=== PATIENT | male | born 1995 ===

== ENCOUNTER 2017-04-02 13:56 | Emergency (ER) | payer OTHER ==
[2017-04-02 14:22] VITALS: BP 120/51; PULSE 70; RESP 16; TEMP 98.1; O2SAT 100
[2017-04-02] MEDS ORDERED: Sodium Chloride 0.9% 1,000 ML IV STA (15:14)
--- NOTE | 2017-04-02 15:18 | ED PDOC ---
HPI: Abdomen Chief Complaint (Provider): Vomiting/Diarrhea History Per: Patient History/Exam Limitations: no limitations Onset/Duration Of Symptoms: Days Outside of [place] travel?: No Current Symptoms Are (Timing): Intermittent Episodes Associated Symptoms: Nausea, Vomiting, Diarrhea, Loss Of Appetite. denies: Fever, Chills, Back Pain, Chest Pain, Urinary Symptoms Exacerbating Factors: Food Alleviating Factors: None Last Bowel Movement: Today Additional History Per: Patient <Ja Carlton - Last Filed: 04/02/17 18:33> <Nathalia Dotson - Last Filed: 04/03/17 14:17> Time Seen by Provider: 04/02/17 14:38 Chief Complaint (Nursing): Abdominal Pain Additional Complaint(s): This is 22 y/o Male with no PMH or PSH comes to the ED complaining of 2 days history of NBNB vomiting and 1 episode of NB diarrhea. Patient admits vomiting last 2 days 2 episodes/day, denies any vomiting today but reports 1 watery diarrhea this morning. Patient also admits anorexia for 2 days. Food makes his symptoms worse, reports associated nausea and dizziness. Denies any fever, weakness, chest pain, SOB, admits stomach pain when tries to cough or vomit. Denies any unusual food intake, travel or having anyone home with same symptoms. (Ja Carlton) Supervising Attending Note <Ja Carlton - Last Filed: 04/02/17 18:33> - Supervising Attending Note The Documented history was done by the: Physician Education Trainer, Attending Physician The documented physical exam was done by the: Physician Education Trainer, Attending Physician - Attestation: I have personally seen and examined this patient.: Yes I have fully participated in the care of the patient.: Yes I have reviewed all pertinent clinical information: Yes <Nathalia Dotson - Last Filed: 04/03/17 14:17> - Notes: Notes:: Vomiting with improvement after IVF, benign abdomen. (Nathalia Dotson) Past Medical History Reviewed: Vital Signs - Medical History Other PMH: None - Surgical History Other surgeries: None - Family History Family History: States: Unknown Family Hx - Social History Current smoker - smoking cessation education provided: Yes Alcohol: Social Drugs: Denies - Immunization History Hx Tetanus Toxoid Vaccination: No (doesnt remember last vaccination) <Ren Carltondavid - Last Filed: 04/02/17 18:33> <DotsonNathalia jose Reshma - Last Filed: 04/03/17 14:17> Vital Signs: Last Vital Signs Temp 98.1 F 04/02/17 14:20 Pulse 70 04/02/17 14:20 Resp 16 04/02/17 14:20 BP 120/51 L 04/02/17 14:20 Pulse Ox 100 04/02/17 18:33 - Home Medications Home Medications: Ambulatory Orders Medication Instructions Recorded Famotidine [Pepcid] 40 mg PO DAILY PRN #10 tab 04/02/17 Ondansetron ODT [Zofran ODT] 1 odt PO Q6 PRN #20 odt 04/02/17 - Allergies Allergies/Adverse Reactions: Allergies Allergy/AdvReac Type Severity Reaction Status Date / Time No Known Allergies Allergy Verified 10/06/15 23:45 Review of Systems Constitutional: Negative for: Fever, Weakness Eyes: Negative for: Pain, Vision Change ENT: Negative for: Ear Pain Cardiovascular: Negative for: Chest Pain, Palpitations, Orthopnea Respiratory: Negative for: Cough, Shortness of Breath, Hemoptysis Gastrointestinal: Positive for: Nausea Genitourinary Male: Negative for: Dysuria, Frequency Musculoskeletal: Negative for: Neck Pain, Shoulder Pain Skin: Negative for: Rash Neurological: Negative for: Weakness, Numbness, Confusion <Ren Carltondavid - Last Filed: 04/02/17 18:33> Physical Exam - Reviewed Nursing Documentation Reviewed: Yes Vital Signs Reviewed: Yes - Physical Exam Appears: Positive for: No Acute Distress Head Exam: Positive for: ATRAUMATIC, NORMAL INSPECTION, NORMOCEPHALIC Skin: Positive for: Normal Color Eye Exam: Positive for: Normal appearance ENT: Positive for: Normal ENT Inspection Neck: Positive for: Normal, Painless ROM Cardiovascular/Chest: Positive for: Regular Rate, Rhythm, Chest Non Tender. Negative for: Edema, JVD Respiratory: Positive for: Normal Breath Sounds. Negative for: Decreased Breath Sounds Gastrointestinal/Abdominal: Positive for: Bowel Sounds (normal), Soft, Tenderness (LUQ). Negative for: Organomegaly, Mass, Distended, Guarding Back: Positive for: Normal Inspection Extremity: Positive for: Normal ROM. 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 Dotson Urine Dip reviewed, mild dehydration CBC, CMP unremarkable Patient reevaluated and feels better, eating and tolerating PO intake (Ja Carlton) Medical Decision Making <Ja Carlton - Last Filed: 04/02/17 18:33> <Nathalia Dotson - Last Filed: 04/03/17 14:17> Medical Decision Making: viral infection (Ja Carlton) Disposition - Patient ED Disposition Is Patient to be Admitted: No - Disposition Disposition: Routine/Home Disposition Time: 18:32 <Ja Carlton - Last Filed: 04/02/17 18:33> <Nathalia Dotson - Last Filed: 04/03/17 14:17> - Clinical Impression Clinical Impression: Vomiting - Disposition Referrals: [facility] [Outside] - 04/09/17 (FOLLOW UP WITH CLINIC IN 1- 2 WEEKS TO SEE HOW YOU ARE DOING) Condition: GOOD Prescriptions: Famotidine [Pepcid] 40 mg PO DAILY PRN #10 tab PRN Reason: reflux Ondansetron ODT [Zofran ODT] 1 odt PO Q6 PRN #20 odt PRN Reason: Nausea/Vomiting Instructions: Gastroenteritis (ED), Acute Nausea and Vomiting (ED) Forms: [facility] ED School/Work Excuse
[2017-04-02 16:31] LABS: BASO % 0.6 % (0.0-2.0); EOS # 0.3 K/uL (0.0-0.7); EOS % 3.6 % (0.0-4.0); HEMOGLOBIN 14.5 g/dL (12.0-18.0); LYMPH # 1.8 K/uL (1.0-4.3); LYMPH % 24.9 % (20.0-40.0); MEAN CELL VOLUME 95.4 fl (80.0-94.0); MEAN CORPUSCULAR HEMOGLOBIN 31.4 pg (27.0-31.0); MONO # 0.7 K/uL (0.0-0.8); MONO % 9.4 % (0.0-10.0); NEUT # 4.4 K/uL (1.8-7.0); NEUT % 61.5 % (50.0-75.0); NRBC % 0.1 % (0.0-0.0); RBC 4.61 Mil/uL (4.40-5.90); RED CELL DISTRIBUTION WIDTH 14.1 % (11.5-14.5); WHITE BLOOD COUNT 7.1 K/uL (4.8-10.8)
[2017-04-02 16:48] LABS: ALB/GLOB RATIO 1.4 (1.0-2.1); ALBUMIN 4.3 g/dL (3.5-5.0); ALT/SGPT 37 U/L (21-72); AST/SGOT 26 U/L (17-59); BLOOD UREA NITROGEN 18 mg/dl (9-20); CALCIUM 9.6 mg/dL (8.4-10.2); GFR AFRICAN-AMERICAN > 60; GFR NON-AFRICAN AMERICAN > 60; LIPASE 86 U/L (23-300)
== END 2017-04-02 17:54 | disposition home or self-care (01) ==
LOC: H.ER 13:56
DX: R11.2 Nausea with vomiting, unspecified (principal); F17.200 Nicotine dependence, unspecified, uncomplicated
CPT/HCPCS: 80053; 83690; 85025; 96374; 99283; J2405; J7040

== ENCOUNTER 2017-07-21 11:04 | Emergency (ER) | payer SELFPAY ==
[2017-07-21 11:07] VITALS: BMI 16.7
[2017-07-21 11:08] VITALS: BP 130/77; PULSE 83; RESP 17; TEMP 97.4; O2SAT 100
--- NOTE | 2017-07-21 13:40 | RAD ---
PROCEDURE: Radiographs of the Right Shoulder HISTORY: right shoulder pain injury COMPARISON: No prior. FINDINGS: BONES: Bone alignment and mineralization are normal. There is no acute displaced fracture or bone destruction. JOINTS: Normal. Glenohumeral and acromioclavicular joints preserved. SOFT TISSUES: Normal. OTHER FINDINGS: None. IMPRESSION: No acute fracture or dislocation.
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
== END 2017-07-21 14:00 | disposition home or self-care (01) ==
LOC: H.ER 11:04
DX: S49.91XA Unspecified injury of right shoulder and upper arm, initial encounter (principal); Y35.813A Legal intervention involving manhandling, suspect injured, initial encounter; Y92.89 Other specified places as the place of occurrence of the external cause; F10.129 Alcohol abuse with intoxication, unspecified; F17.200 Nicotine dependence, unspecified, uncomplicated